=== PATIENT | female | born 1985 | race Hispanic/Latino ===

== ENCOUNTER 2024-08-27 13:45 | Emergency (ER) | payer SELFPAY ==
[2024-08-27 13:48] VITALS: BP 154/106
--- NOTE | 2024-08-27 13:48 | ED.GENMED ---
ED Provider Triage
<Migue Madden PA-C - Last Filed: 08/27/24 13:52>
-
Patient seen by provider in Triage?: Seen in Triage
Attestation: A medical screening examination has been initiated by a qualified medical provider. Based on the assessment performed at this time, it has been determined that an emergent medical condition may exist and the patient has been informed
that further medical evaluation and possible additional diagnostic testing may be needed.
HPI: 39-year-old female presents for evaluation of right upper quadrant abdominal pain for the past 6 days. Describes pulsatile and minimally painful. No obvious provoking or palliating factors. No fevers or chills. Prior abdominal surgical
history includes appendectomy.
GENERAL: Alert , in no apparent distress
EYE: No visual abnormalities.
NECK: Trachea midline
ENT: No visible abnormalities.
LUNGS: No acute respiratory distress
NEUROLOGICAL: Alert and oriented
SKIN: Skin intact. No visible changes.
MUSCULOSKELETAL: Moving extremities normally
PSYCH: Normal and appropriate interaction.
This is a medical evaluation conducted in person to initiate diagnostic evaluation and provide initial therapeutics. Please see further documentation by the treating clinician.
History of Present Illness
<Migue Madden PA-C - Last Filed: 08/27/24 13:52>
General
Chief Complaint: Abdominal Symptoms
Time Seen by Provider: 08/27/24 15:03
<Govind Carlos DO - Last Filed: 08/27/24 16:38>
General
Source: patient
Exam Limitations: none
History of Present Illness
History of Present Illness:
See MDM
Past History
<Govind Carlos DO - Last Filed: 08/27/24 16:38>
Past History
ED Past Medical History: None
ED Past Surgical History: Appendectomy
Social History
Tobacco: Non-smoker
Alcohol: None
Phy Exam
<Govind Carlos DO - Last Filed: 08/27/24 16:38>
Physical Exam
Physical Exam:
See MDM
Course
<Migue Madden PA-C - Last Filed: 08/27/24 13:52>
Orders/Labs/Results
Orders:
Orders
08/27/24 13:51
Test Result ONCE
US Abdomen Complete/Upper Urgent
Comment:
Reason For Exam: RUQ pain
08/27/24 13:57
Complete Blood Count/With Diff Urgent
Comprehensive Metabolic Panel Urgent
HCG, Serum Qualitative Screen Urgent
Lipase Urgent
Abnormal Lab Results
08/27/24
13:57
RBC 4.17 L 10^6/uL
(4.20-5.40)
Hct 36.6 L %
(37.0-47.0)
MCH 31.7 H pg
(27.0-31.0)
Absolute Lymphs (auto) 4.3 H 10^3/uL
(1.2-3.4)
Absolute Monos (auto) 0.7 H 10^3/uL
(0.1-0.6)
Albumin 5.2 H g/dl
(3.5-5.0)
08/27/24 13:57
08/27/24 13:57
Vital Signs
Initial and Last Documented VS:
Initial Vital Signs
Temp Pulse Resp BP Pulse Ox
98.8 F 83 16 154/106 97
08/27/24 13:48 08/27/24 13:48 08/27/24 13:48 08/27/24 13:48 08/27/24 13:48
Last Documented Vital Signs
Temp Pulse Resp BP Pulse Ox
98.8 F 83 16 154/106 97
08/27/24 13:48 08/27/24 13:48 08/27/24 13:48 08/27/24 13:48 08/27/24 13:48
<Govind Carlos, DO - Last Filed: 08/27/24 16:38>
Orders/Labs/Results
Orders:
Orders
08/27/24 13:51
Test Result ONCE
US Abdomen Complete/Upper Urgent
Comment:
Reason For Exam: RUQ pain
08/27/24 13:57
Complete Blood Count/With Diff Urgent
Comprehensive Metabolic Panel Urgent
HCG, Serum Qualitative Screen Urgent
Lipase Urgent
Abnormal Lab Results
08/27/24
13:57
RBC 4.17 L 10^6/uL
(4.20-5.40)
Hct 36.6 L %
(37.0-47.0)
MCH 31.7 H pg
(27.0-31.0)
Absolute Lymphs (auto) 4.3 H 10^3/uL
(1.2-3.4)
Absolute Monos (auto) 0.7 H 10^3/uL
(0.1-0.6)
Albumin 5.2 H g/dl
(3.5-5.0)
08/27/24 13:57
08/27/24 13:57
Vital Signs
Initial and Last Documented VS:
Initial Vital Signs
Temp Pulse Resp BP Pulse Ox
98.8 F 83 16 154/106 97
08/27/24 13:48 08/27/24 13:48 08/27/24 13:48 08/27/24 13:48 08/27/24 13:48
Last Documented Vital Signs
Temp Pulse Resp BP Pulse Ox
98.8 F 83 16 154/106 97
08/27/24 13:48 08/27/24 13:48 08/27/24 13:48 08/27/24 13:48 08/27/24 13:48
<Govind Carlos, DO - Last Filed: 08/27/24 16:38>
MDM/Problems Addressed
Differential Diagnosis Includes:
HPI and MDM Narrative:
39-year-old female presenting for evaluation of several days of right upper quadrant. Patient states it has been ongoing for the past 6 days or so. Blood work and right upper quadrant ultrasound performed prior to my evaluation.
Blood work and ultrasound negative
On my assessment, she has no abdominal pain. Patient states she was getting worried because pain is worse when she smokes a cigarette.
Is not certain what is causing her symptoms but we discussed the incidental finding on the ultrasound and discussed follow-up with her doctor. Patient states she does not insurance. She was given referral to [facility]
Physical exam
General: Well appearing and non-toxic
HEENT: protecting airway
Neck: appears supple
CV: No evidence of cyanosis
Resp: No accessory muscle use
Abd: Non-distended. Soft and nontender
Extremities: No deformities
Neuro: alert
Psych: Normal affect
Skin: Intact
Problems Addressed including Acute and Chronic Conditions affecting care:
1. Right upper quadrant pain
Acuity: acute
Prognosis: stable
Details: Given location of pain, will obtain ultrasound
Differential Diagnosis (but not limited to): Symptomatic cholelithiasis, constipation, muscle strain
Testing considered: Abdominal x-ray
Drug therapy (if applicable): OTC meds, please see d/c instruction regarding Rx drugs
Amount and/or Complexity of Data Reviewed
Clinical info obtained from: Patient
External data reviewed: N/A
Labs I independently reviewed (but not limited to): LFTs within normal limits
Radiology: Ultrasound report reviewed
Pulse Ox: not hypoxic
EKG independently reviewed: N/A
Shovel Handle Assembler: N/A
Critical Care: N/A
Risk of Complication:
Social Determinants of health: Good social support
Discussed with other providers: N/A
Escalation of Care includes Admit/Obs: After being observed in the Emergency Department, pt stable for discharge.
Occasional wrong word or 'sound a like' substitutions may have occurred due to the inherent limitations of voice recognition software. Read the chart carefully and recognize, using context, where substitutions have occurred.
<Govind Carlos DO - Last Filed: 08/27/24 16:38>
*Critical Care Note
Total Time (30-74mins, 75-104mins- exclusive of procedures): Not Applicable
ED Attending Note
<Migue Madden PA-C - Last Filed: 08/27/24 13:52>
-
Portions of this chart may have been created with voice recognition software.� Occasional wrong word or��sound alike� substitutions may have occurred due to the inherent limitations of voice recognition software.
Discharge Plan
Departure
Patient Disposition: Home (Routine Discharge)
Date of Disposition: 08/27/24
Time of Disposition: 16:33
Patient with high blood pressure during this ER visit?: No
Discharge Problem:
Abdominal pain
Instructions: Abdominal Pain
Referrals:
[facility] [Outside]
NONE,* [Family Provider] -
Activity Restrictions/Additional Instructions:
Please return for any worsening symptoms.
You may return at any time if you have further concerns.
Please follow up with the clinic.
Thank you for choosing [facility].
Interventions
Interventions:
*Risk Screen - Suicide Last Done: 08/27/24 13:48
*General Assessment Last Done: 08/27/24 13:48
*Neglect/Abuse Screening Last Done: 08/27/24 13:48
*ED COVID-19 Vaccine History Last Done: 08/27/24 14:48
[facility] Assessment Last Done: 08/27/24 14:48
Discharge Date and Time
Print Language: SPANISH
[2024-08-27 14:04] LABS: % Basophils 0.9 % (0-2); % Eosinophils 2.9 % (0-6); % Immature Granulocytes 0.3 % (0-0.5); % Lymphocytes 43.5 % (20.5-51.1); % Monocytes 6.9 % (1.7-9.3); % Neutrophils 45.5 % (42.2-75.2); Absolute Basophils 0.1 10^3/uL (0-0.2); Absolute Eosinophils 0.3 10^3/uL (0-0.7); Absolute Lymphocytes 4.3 10^3/uL (1.2-3.4); Absolute Monocytes 0.7 10^3/uL (0.1-0.6); Absolute Neutrophils 4.5 10^3/uL (1.4-6.5); Hematocrit 36.6 % (37.0-47.0); Hemoglobin 13.2 g/dL (12.0-16.0); Mean Corp Hgb Conc. 36.1 g/dL (33.0-37.0); Mean Corpuscular Hgb 31.7 pg (27.0-31.0); Mean Corpuscular Volume 87.8 fL (81.0-99.0); Mean Platelet Volume 10.3 fL (7.4-10.4); Nucleated Red Blood Cells % 0 %; Platelet Count 259 10^3/uL (130-400); Red Blood Cell Count 4.17 10^6/uL (4.20-5.40); Red Cell Dist. Width 12.1 % (11.5-14.5)
[2024-08-27 14:16] LABS: HCG, Serum Qualitative Screen Negative
[2024-08-27 14:19] LABS: ALT (SGPT) 24 U/L (0-35); AST (SGOT) 27 U/L (14-36); Albumin 5.2 g/dl (3.5-5.0); Alkaline Phosphatase 82 U/L (38-126); Blood Urea Nitrogen 13 mg/dl (7-17); Calcium 9.6 mg/dl (8.4-10.2); Carbon Dioxide 25 mmol/L (22-30); Chloride 101 mmol/L (98-107); Glucose 91 mg/dl (70-99); Lipase 36 U/L (23-300); Potassium 4.4 mmol/L (3.5-5.1); Sodium 135 mmol/L (135-145); Total Bilirubin 0.7 mg/dl (0.2-1.3); Total Protein 8.2 g/dl (6.3-8.2); eGFR > 60.00
[2024-08-27 16:42] VITALS: BP 162/100
== END 2024-08-27 16:43 | disposition home or self-care (01) ==
LOC: EMR 13:45
PROVIDERS: Physician Assistant; EMERGENCY PHYSICIAN Student in an Organized Health Care Education/Training Program
DX: R10.11 Right upper quadrant pain (principal); Z90.49 Acquired absence of other specified parts of digestive tract; F17.210 Nicotine dependence, cigarettes, uncomplicated; Z59.71 Insufficient health insurance coverage
CPT/HCPCS: 99284; 76700; 80053; 83690; 84703; 85025